=== PATIENT | male | born 1940 | race Caucasian/White ===

== ENCOUNTER 2016-05-05 16:28 | Emergency (ER) | payer OTHER, MEDICARE ==
--- NOTE | 2016-05-05 16:47 | ED GENERAL ADULT ---
History of Present Illness General Chief Complaint: General Adult Stated Complaint: SENT BY GI FOR VIT K SHOT Source: patient, old records Exam Limitations: no limitations Vital Signs & Intake/Output Vital Signs & Intake/Output Vital Signs Date Time Temp Pulse Resp B/P Pulse O2 O2 Flow FiO2 Ox Delivery Rate 05/05 1659 98.2 80 16 145/70 98 Room Air Room Air ED Intake and Output 05/06 0000 05/05 1200 Intake Total 0 Output Total Balance 0 Intake, Oral 0 Allergies Coded Allergies: No Known Allergies (05/05/16) Triage Nurses Notes Reviewed? yes Onset: Gradual Duration: day(s): (1), constant Timing: single episode today Injury Environment: home Severity: mild Severity Numbers: 1 No Modifying Factors: none Associated Symptoms: denies HPI: This is a 75-year-old male who presents to the emergency room for administration of vitamin K referred by Dr. 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 The patient takes Coumadin daily and had an elevated INR today for which she was referred to the ER after no pharmacies had the medication in stock. The patient is otherwise without any complaints he denies pain there is been no active bleeding no change in his bowel movements. No fever no chills, no modifying or associated symptoms otherwise. Per nursing conversation with Dr. Lewis's office patient is to receive 1 dose of vitamin K 10 mg subcutaneous. pts outpt inr was 2.18 today. (ANIBAL VIERA) Past History Medical History Any Pertinent Medical History? see below for history Cardiovascular: hypertension Surgical History Surgical History: non-contributory Psychosocial History Tobacco Use: Never used Family History Hx Contributory? No (ANIBAL VIERA) Review of Systems Review of Systems Constitutional: Reports: see HPI. All Other Systems: Reviewed and Negative Comments Review of systems: See HPI, All other systems negative. Constitutional, no chills no fever, no malaise no weight loss HEENT: no sore throat no congestion Cardiovascular: No chest pain , no palpitation Skin, no jaundice no rashes, no change in skin Respiratory: No dyspnea no cough no sputum GI: No nausea no vomiting, no diarrhea : No dysuria Muscle skeletal: No joint pain, no back pain, no neck pain, Neurologic: No numbness, no headache Psych: No stress Heme/endocrine: No bruising no bleeding Immunology: No lymphadenopathy (ANIBAL VIERA) Physical Exam Physical Exam General Appearance: well developed/nourished, no apparent distress, alert, awake Comments: Well-developed well-nourished patient in no apparent distress. HEENT: Atraumatic, extraocular motion intact Neck: Supple, FROM Back: FROM Cardiovascular: Regular rate and rhythms no murmurs rubs Respiratory: No respiratory distress. Patient speaking in full complete sentences. Breath sounds clear to auscultation bilaterally: NO W/R/R Extremities: full range of motion Neuro: Alert and oriented x3 Skin: Warm & dry;No appreciable rash on exposed skin Psych: Mood affect normal, normal memory normal judgment. Core Measures ACS in differential dx? No CVA/TIA Diagnosis: No Severe Sepsis Present: No Septic Shock Present: No (ANIBAL VIERA) Progress Differential Diagnoses I considered the following diagnoses in my evaluation of the patient: Elevated INR electrolyte abnormality Plan of Care: Current Medications Sig/Barb Start time Last Medication Dose Stop Time Status Admin Phytonadione 10 MG ONCE ONE 05/05 1644 UNVr (Vitamin K) 05/05 1645 Patient administered vitamin K 10 mg subcutaneous he is otherwise without any complaints patient will follow-up with Dr. Lewis for colonoscopy tomorrow, I answered all his questions she feels comfortable with plan cleared for discharge (ANIBAL VIERA) Initial ED EKG: none (ANIBAL VIERA) Departure Departure Time of Disposition: 1649 Disposition: HOME OR SELF CARE Condition: Stable Clinical Impression Primary Impression: Elevated INR Referrals: BRENDA ESPINO,CUAUHTEMOC Diego (PCP/Family) ANNA MARQUEZ,ENRIKE Greene Additional Instructions: follow up as scheduled tomorrow for your colonoscopy and refer to dr nation as to when to begin your coumadin once again. 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 I have also reviewed all the pertinent lab results and diagnostic results. I agree with the findings and the plan of care as documented in the PA's/[employer] SAL[employer] TEAM MEMBER's documentation. [X] I have reviewed the ED Record and agree with the PA's/[employer] SALES [employer] TEAM MEMBER's documentation. [] Additions or exceptions (if any) to the PAs/[employer] SALES [employer] TEAM MEMBER's note and plan are summarized below: [] (JOSE ALEJANDRO MARQUEZ,MAYANK) Critical Care Note Critical Care Note Critical Care Time: non-applicable (LENNIE DOLAN,ANIBAL)
[2016-05-05 16:59] VITALS: BP 145/70
== END 2016-05-05 17:00 ==
LOC: ERH 16:28
DX: R79.1 Abnormal coagulation profile (principal)
CPT/HCPCS: 36415; 96372

== ENCOUNTER 2017-07-13 17:13 | Inpatient (IN) | payer OTHER, MEDICARE ==
[~2017-07-13] VITALS: Ht 185.4 cm; Wt 99.5 kg
--- NOTE | 2017-07-13 17:45 | ED DYSPNEA/ASTHMA COMPLAINT ---
History of Present Illness General Chief Complaint: Dyspnea (COPD, CHF, Other) Stated Complaint: SOB, X 2 DAY, S/P STENT/PACEMAKER PLACEMENT Source: patient Exam Limitations: no limitations Vital Signs & Intake/Output Vital Signs & Intake/Output Vital Signs Date Time Temp Pulse Resp B/P B/P Pulse O2 O2 Flow FiO2 Mean Ox Delivery Rate 07/13 2054 97.5 92 20 136/88 97 Nasal 2.0L Cannula 07/13 1934 97.8 100 20 134/100 97 Nasal 2.0L Cannula 07/13 1920 96 Nasal 2.0L Cannula 07/13 1730 124 20 146/99 92 Room Air 07/13 1724 97.1 101 20 141/94 95 Room Air Room Air Allergies Coded Allergies: No Known Allergies (07/13/17) Triage Note: PT TO ED FOR C/C OF SUDDEN ONSET OF SOB THAT STARTED LAST NIGHT. PT WAS UNABLE TO SLEEP AND HAD TO SLEEP IN A CHAIR IN ORDER TO BREATHE. SIGNIFICANT CARDIAC HISTORY OF CARDIAC ARREST June WITH STENTS PLACED AND AFIB. PT DENIES CHEST PAIN, DIZZINESS. BROUGHT TO ROOM 20 FROM EKG [place]. Triage Nurses Notes Reviewed? yes Onset: Abrupt Duration: day(s): (2), constant, continues in ED, getting worse Timing: single episode today Severity: moderate, severe Activities at Onset: none Prior Episodes/Possible Cause: no prior episodes Modifying Factors: Worsens With: movement. Associated Symptoms: anxiety, cough HPI: 76-year-old male past medical history of coronary disease, atrial fibrillation, hypertension presents for evaluation of shortness of breath. Patient states that on 06/22/2017 he had a [facility] that resulted in cardiac arrest. He was able to be revived and went to [facility] HE HAD had stents placed and was given a pacemaker. He had been doing well since discharge until about 2 days ago he developed worsening shortness of breath. He states that the shortness breath is worse when he lays back or when he exerts himself. It does get somewhat better at rest. It is no chest pain. It is associated with a dry cough and no hemoptysis fever lower extremity edema. No nausea vomiting sweats or chills. (Terrance DOLAN,Ankush) Reconcile Medications Atorvastatin Calcium 40 MG TABLET 1 TAB PO QPM Cholesterol (Reported) Lisinopril 5 MG TABLET 1 TAB PO DAILY BP (Reported) Warfarin Sodium (Coumadin) 5 MG TABLET 1 TAB PO QPM Atrial Fibrillation ( Reported) (Ashok MARQUEZ,Favio) Past History Travel History Traveled to [place] past 21 day No Medical History Any Pertinent Medical History? 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 No (Ankush Kaye) Review of Systems Review of Systems Constitutional: Reports: weakness. EENTM: Reports: no symptoms. Respiratory: Reports: see HPI, cough, short of breath. Cardiovascular: Reports: no symptoms. GI: Reports: no symptoms. Genitourinary: Reports: no symptoms. Musculoskeletal: Reports: no symptoms. Skin: Reports: no symptoms. Neurological/Psychological: Reports: no symptoms. Hematologic/Endocrine: Reports: no symptoms. Immunologic/Allergic: Reports: no symptoms. All Other Systems: Reviewed and Negative (Ankush Kaye) Physical Exam Physical Exam General Appearance: well developed/nourished, no apparent distress, alert, awake Head: atraumatic, normal appearance Eyes: Bilateral: normal appearance, PERRL, EOMI. Ears, Nose, Throat: normal pharynx, normal ENT inspection, hearing grossly normal Neck: normal inspection, supple, full range of motion Respiratory: chest non-tender, crackles (AT BASES ) Cardiovascular: regular rate/rhythm, normal peripheral pulses Peripheral Pulses: 2+ radial (R), 2+ radial (L) Gastrointestinal: normal bowel sounds, soft, non-tender, no organomegaly Neurologic/Psych: no motor/sensory deficits, awake, alert, oriented x 3, normal gait, normal mood/affect Skin: intact, normal color, warm/dry Lymphatic: no anterior cervical benjamin Core Measures ACS in differential dx? No CVA/TIA Diagnosis No Sepsis Present: No Sepsis Focused Exam Completed? No (Ankush Kaye) Progress Differential Diagnosis: asthma, AMI, bronchitis, CHF, COPD, musculoskeletal pain , pericarditis, pulmonary embolism, pneumonia, pneumothorax, rib fracture, unstable angina Plan of Care: Orders Procedure Date/time Status CHF Diet 07/14 B Active ECHOCARDIOGRAM 07/14 0700 Active TROPONIN LEVEL 07/14 0600 Active PROTHROMBIN TIME 07/14 06 Active BASIC ELECTROLYTES PLUS BUN&CR 07/14 06 Active EKG 07/14 0600 Active TROPONIN LEVEL 07/13 2300 Active EKG 07/13 2300 Active Weight 07/13 2208 Active Vital Signs 07/13 2208 Active Teach/Educate 07/13 2208 Active Pain Treatment and Response 07/13 2208 Active Nutritional Intake, Monitor 07/13 2208 Active Isolation 07/13 2208 Active Intake & Output 07/13 2208 Active Patient Care Conference 07/13 2208 Active Activity/Ambulation 07/13 2208 Active Pathway - chart 07/13 2154 Active House Staff 07/13 2154 Active Patient Data 07/13 2154 Active Patient Data 07/13 2044 Active OXYGEN SETUP (GEN) 07/14 2031 Active Saline Lock 07/14 2031 Active Admit to inpatient 07/14 2031 Active Vital Signs 07/14 2031 Active Activity/Ambulation 07/14 2031 Active Code Status 07/14 2031 Active Intake & Output 07/13 1908 Active Add-on Test (ER Only) 07/13 1740 Active PARTIAL THROMBOPLASTIN TIME 07/13 1736 Complete PROTHROMBIN TIME 07/13 1736 Complete Add-on Test (ER Only) 07/13 1728 Active D-DIMER 07/13 1728 Complete TSH REFLEX 07/13 1723 Complete TROPONIN LEVEL 07/13 1723 Complete MAGNESIUM 07/13 1723 Complete COMPREHENSIVE METABOLIC PANEL 07/13 1723 Complete CBC WITHOUT DIFFERENTIAL 07/13 1723 Complete B-TYPE NATRIURETIC PEP (BNP) 07/13 1723 Complete EKG 07/13 1715 Active VTE Mechanical Prophylaxis 07/13 UNK Active Telemetry/Bakery Deliverer 07/13 UNK Active Current Medications Sig/Barb Start time Last Medication Dose Stop Time Status Admin Furosemide 40 MG DAILY 07/14 0900 AC (Lasix) Laboratory Tests 07/13/17 1736: Anion Gap 14, Estimated GFR > 60, BUN/Creatinine Ratio 23.8, Glucose 137 H, Calcium 9.3, Magnesium 1.7, Total Bilirubin 1.0, AST 22, ALT 20 L, Alkaline Phosphatase 83, Troponin I 0.04, Pml-M-Hmmkigrlqtd Pept 6700 H, Total Protein 6.7, Albumin 4.0, Globulin 2.7, Albumin/Globulin Ratio 1.5, TSH &T3 &Free T4 Intrp 4.060, PT 39.6 H, INR 3.59 H, APTT 48 H, D-Dimer High Sensitivty 706 H , CBC w Diff NO MAN DIFF REQ, RBC 4.50 L, MCV 93.3, MCH 31.7 H, MCHC 34.0, RDW 14.4, MPV 7.0 L, Gran % 82.2 H, Lymphocytes % 9.9 L, Monocytes % 6.4, Eosinophils % 1.3, Basophils % 0.2, Absolute Granulocytes 11.6 H, Absolute Lymphocytes 1.4, Absolute Monocytes 0.9 H, Absolute Eosinophils 0.2, Absolute Basophils 0 Patient seen and evaluated. He was recently treated with stents for A VA. Shortness of breath several days and has been worsening. Symptoms are worse when he lays back and exerts himself that improved with REST. He currently is hypoxic on room air to 90%. He is tachypneic and tachycardic. Labs EKG ordered and is on telemetry he is also placed on oxygen to maintain oxygen saturation in the mid 90s. EKG shows a ventricular paced rhythm. On telemetry it appears that he is going from a ventricular paced rhythm to a sinus rhythm intermittently. He denies palpitations or chest pain. BNP is elevated at 6700 chest x-ray shows vascular congestion may be fluid overloaded Lasix ordered. Initial troponin is negative d-dimer is elevated CT was ordered. Spoke with Dr. Ya who recommends admission for IV diuresis. CT scan is negative. No signs of pneumonia PE. Has a small bilateral pleural effusions. Patient will require admission to the hospital for further evaluation and treatment of congestive heart failure. He will require serial labs and EKGs IV diuresis telemetry echocardiogram cardiology consult. Case discussed with Dr. RADFORD and he agrees. Diagnostic Imaging: Viewed by Me: Radiology Read, CT Scan. Discussed w/RAD: Radiology Read, CT Scan. Radiology Impression: PATIENT: CAROL AGUIRRE PRESENT AGE: 76 PATIENT ACCOUNT NO: [id number] : 40 LOCATION: [facility] ORDERING PHYSICIAN: Ankush DOLAN SERVICE DATE: 07/13/17 EXAM TYPE: CAT - CTA CHEST-PULMONARY EMBOLISM EXAMINATION: CT PULMONARY EMBOLISM STUDY CLINICAL INFORMATION: Shortness of breath. Hypoxia. Tachypnea. COMPARISON: Same day chest radiograph. TECHNIQUE: Contiguous helical images of the chest were obtained following the administration of IV contrast. Multiplanar reconstructions were performed. MIPS were obtained and reviewed. DLP: 621 mGy-cm. CONTRAST: Contrast FINDINGS: The heart is stable in size. There is no pericardial effusion. The great vessels are unremarkable. Specifically, there is no pulmonary arterial filling defect. There is no CT evidence for pulmonary embolism. There are no chest wall masses. Review of lung windows demonstrates that there are no pneumothoraces. There are small bilateral pleural effusions. There is mild multifocal atelectasis. There are no pulmonary parenchymal nodules. Limited evaluation of the upper abdomen demonstrates that the liver is of normal size and attenuation without focal lesions. Normal adrenal glands are identified. IMPRESSION: No CT evidence for pulmonary embolism. Small bilateral pleural effusions. Mild multifocal atelectasis. DICTATED BY: Bobby Alamo MD DATE/TIME DICTATED:07/13/171907 STRATEGIC ACCOUNT EXECUTIVE:AIDE DATE/TIME TRANSCRIBED:1907 CONFIDENTIAL, DO NOT COPY WITHOUT APPROPRIATE AUTHORIZATION. CXR Impression: PATIENT: CAROL AGUIRRE PRESENT AGE : 76 PATIENT ACCOUNT NO: [id number] : 40 LOCATION: [facility] ORDERING PHYSICIAN: Ankush DOLAN SERVICE DATE: 07/13/17 EXAM TYPE: RAD - XRY- PORTABLE CHEST XRAY EXAMINATION: CHEST 1 VIEW CLINICAL INFORMATION: Shortness of breath. CHF. COMPARISON: None. TECHNIQUE: An AP view of the chest is provided. FINDINGS: The cardiac silhouette is enlarged. There is moderate vascular congestion. There is retrocardiac opacification. The mediastinal and hilar contours are unremarkable. There are no demonstrable pleural effusions or pneumothoraces. The osseous structures are unremarkable. IMPRESSION: Cardiomegaly with moderate vascular congestion and retrocardiac airspace disease. DICTATED BY: Bobby Alamo MD DATE/TIME DICTATED:07/13/171804 STRATEGIC ACCOUNT EXECUTIVE:AIDE DATE/TIME TRANSCRIBED:07/13/171804 CONFIDENTIAL, DO NOT COPY WITHOUT APPROPRIATE AUTHORIZATION. <Electronically signed in Other Vendor System> SIGNED BY: Bobby Alamo MD 07/13/171809 Initial ED EKG: a. FIB/FLUTTER VENTRICULAR PACED COMPLEXES INTERVENTRICULAR CONDUCTION DELAY Prior EKG: changed (PACE MAKER ) (Ankush Kaye) Departure Departure Disposition: STILL A PATIENT Condition: Stable Clinical Impression Primary Impression: CHF (congestive heart failure) Qualifiers: Heart failure type: unspecified Heart failure chronicity: acute Qualified Code: I50.9 - Heart failure, unspecified Referrals: Temi MARQUEZ,Ken Hurt (PCP/Family) Departure Forms: Customer Survey General Discharge Information Admission Note Spoke With: Ryan Bhat MD Documentation of Exam: Documentation of any treatments & extenuating circumstances including Concerns Regarding Discharge (functional status, medication knowledge or non-compliance, living conditions, etc.) that warrant an admission rather than observation: [, Cardiology, serial EKGs, serial labs, echocardiogram, telemetry, monitoring vital signs, IV diuresis, medication adjustment, oxygen supplementation] (Ankush Kaye) PA/WATER PLANT PUMP OPERATOR Co-Sign Statement Statement: ED Attending supervision documentation- x I saw and evaluated the patient. I have also reviewed all the pertinent lab results and diagnostic results. I agree with the findings and the plan of care as documented in the PA's/WATER PLANT PUMP OPERATOR's documentation. Hx afib, HTN with dyspnea: CHF [] I have reviewed the ED Record and agree with the PA's/WATER PLANT PUMP OPERATOR's documentation. [] Additions or exceptions (if any) to the PAs/WATER PLANT PUMP OPERATOR's note and plan are summarized below: [] (Ashok MARQUEZ,Favio) Critical Care Note Critical Care Note Critical Care Time: non-applicable (Ankush Kaye)
[2017-07-13 18:05] LABS: ABSOLUTE BASOPHIL COUNT 0 /CUMM (0.0-0.2); ABSOLUTE EOSINOPHIL COUNT 0.2 /CUMM (0.0-0.7); ABSOLUTE GRANULOCYTE CT 11.6 /CUMM (1.4-6.5); ABSOLUTE LYMPH COUNT 1.4 /CUMM (1.2-3.4); ABSOLUTE MONOCYTE COUNT 0.9 /CUMM (0.10-0.60); BASOPHIL % 0.2 % (0.0-2.0); EOSINOPHIL % 1.3 % (0-5); MEAN CORPUSCULAR HGB 31.7 PG (27.0-31.0); MEAN CORPUSCULAR VOLUME 93.3 FL (80.0-94.0); PLATELET COUNT 319 /CUMM (130-400); PT 39.6 SEC (9.4-12.5); PTT 48 SEC (25-37); RBC DISTRIBUTION WIDTH 14.4 % (11.5-14.5); WHITE BLOOD CELL COUNT 14.1 /CUMM (4.8-10.8)
--- NOTE | 2017-07-13 18:10 | RADIOLOGY REPORT ---
EXAMINATION: CHEST 1 VIEW CLINICAL INFORMATION: Shortness of breath. CHF. COMPARISON: None. TECHNIQUE: An AP view of the chest is provided. FINDINGS: The cardiac silhouette is enlarged. There is moderate vascular congestion. There is retrocardiac opacification. The mediastinal and hilar contours are unremarkable. There are no demonstrable pleural effusions or pneumothoraces. The osseous structures are unremarkable. IMPRESSION: Cardiomegaly with moderate vascular congestion and retrocardiac airspace disease.
[2017-07-13 18:17] LABS: GRANULOCYTE % 82.2 % (42.2-75.2)
--- NOTE | 2017-07-13 19:16 | CT SCAN REPORT ---
EXAMINATION: CT PULMONARY EMBOLISM STUDY CLINICAL INFORMATION: Shortness of breath. Hypoxia. Tachypnea. COMPARISON: Same day chest radiograph. TECHNIQUE: Contiguous helical images of the chest were obtained following the administration of IV contrast. Multiplanar reconstructions were performed. MIPS were obtained and reviewed. DLP: 621 mGy-cm. CONTRAST: Contrast FINDINGS: The heart is stable in size. There is no pericardial effusion. The great vessels are unremarkable. Specifically, there is no pulmonary arterial filling defect. There is no CT evidence for pulmonary embolism. There are no chest wall masses. Review of lung windows demonstrates that there are no pneumothoraces. There are small bilateral pleural effusions. There is mild multifocal atelectasis. There are no pulmonary parenchymal nodules. Limited evaluation of the upper abdomen demonstrates that the liver is of normal size and attenuation without focal lesions. Normal adrenal glands are identified. IMPRESSION: No CT evidence for pulmonary embolism. Small bilateral pleural effusions. Mild multifocal atelectasis.
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
[2017-07-13] MEDS ORDERED: COUMADIN5 M2 PO (22:20)
[2017-07-13] MEDS ORDERED: ATORVASTATIN CA40 M1 PO (22:20)
[2017-07-13] MEDS ORDERED: LISINOPRIL5 M1 PO (22:21)
[2017-07-13] MEDS ORDERED: TOPROL XL25 M2 PO (22:21)
[2017-07-13] MEDS ORDERED: SPIRONOLACTONE25 M1 PO (22:22)
[2017-07-13] MEDS ORDERED: BRILINTA90 M1 PO (22:23)
[2017-07-13] MEDS ORDERED: FUROSEMIDE20 M1 PO (22:23)
[2017-07-13] MEDS ORDERED: MAGNESIUM400 M1 PO (22:23)
[2017-07-13] MEDS ORDERED: FIBER TABS625 MG PO (22:24)
[2017-07-13 22:48] VITALS: BP 130/76
--- NOTE | 2017-07-13 23:19 | Admission Certification ---
Admission Certification Certification Statement - As attending physician, I certify that at the time of - admission, based on clinical presentation, severity of - symptoms, need for further diagnostic testing and - therapeutic interventions, and risk of adverse outcomes - without in-hospital treatment, in my clinical assessment, - this patient requires an acute hospital stay for a minimum - of two nights or longer. I have also considered psychsocial - factors such as support system, advanced age, financial - issues, cognitive issues, and failed out-patient treatments, - past re-admission history, safety of patient, and lack of - compliance as applicable. Specific rationale supporting this admission is: Hypoxia, acute congestive heart failure.
[2017-07-14 06:59] VITALS: BP 116/68
--- NOTE | 2017-07-14 07:44 | PN- Housestaff ---
Tiago MARQUEZ,[facility] 07/14/17 0743: Subjective Follow-up For: 1. Acute decompensated heart failure 2. Supratherapeutic INR Tele-Events Since Last Visit: Sinus Pacing HR 80-103 Had a 4 beat and 6 beat run of V tach overnight Subjective: Patient says his shortness of breath is getting better and feels like furosemide is working. Denies any chest pain, palpitations, sputum production, or fevers/ chills. Review of Systems Constitutional: Reports: no symptoms. EENTM: Reports: no symptoms. Cardiovascular: Reports: no symptoms. Respiratory: Reports: cough, short of breath. Gastrointestinal: Reports: no symptoms. Genitourinary: Reports: no symptoms. Musculoskeletal: Reports: no symptoms. Skin: Reports: no symptoms. Neurological/Psychological: Reports: no symptoms. Hematologic/Endocrine: Reports: no symptoms. Immunologic/Allergic: Reports: no symptoms. Objective Last 24 Hrs of Vital Signs/I&O Vital Signs Date Time Temp Pulse Resp B/P B/P Pulse O2 O2 Flow FiO2 Mean Ox Delivery Rate 07/14 0823 07/14 0822 07/14 0730 18 98 Room Air 07/14 0659 97.9 84 18 116/68 96 07/13 2248 97.8 106 18 130/76 97 Nasal 2.0L Cannula 07/13 2200 95 Nasal 2.0L Cannula 07/13 2055 97.5 92 20 136/88 97 Nasal 2.0L Cannula 07/13 1935 97.8 100 20 134/100 97 Nasal 2.0L Cannula 07/13 1921 96 Nasal 2.0L Cannula 07/13 1730 124 20 146/99 92 Room Air 07/13 1725 97.1 101 20 141/94 95 Room Air Room Air Intake & Output 07/14 1600 07/14 0800 07/14 0000 Intake Total 400 Output Total 400 700 Balance 0 -700 Intake, Oral 400 Output, Urine 400 700 Patient 235 lb Weight Weight Reported by Patient Measurement Method Physical Exam General Appearance: Alert, Oriented X3, Cooperative, No Acute Distress Skin: No Rashes, No Breakdown Neck: Supple, No JVD Cardiovascular: Normal S1, Normal S2 Lungs: Clear to Auscultation, Normal Air Movement Abdomen: Normal Bowel Sounds, Soft, No Tenderness Extremities: No Clubbing, No Cyanosis, Chronic venous stasis changes Current Medications: Current Medications Sig/Barb Start time Last Medication Dose Route Stop Time Status Admin Atorvastatin Calcium 40 MG QPM 07/14 2100 AC PO Furosemide 40 MG DAILY 07/14 899 CAN PO Furosemide 40 MG DAILY 07/14 899 AC 07/14 IV 0823 Furosemide 0 .STK-MED ONE 07/13 1840 DC IV Furosemide 40 MG ONCE ONE 07/13 1830 DC 07/13 IV 07/13 183 183 Lisinopril 5 MG DAILY 07/14 899 AC 07/14 PO 0823 Magnesium Oxide 400 MG DAILY 07/14 09 AC 07/14 PO 0823 Metoprolol Succinate 25 MG DAILY 07/14 899 AC 07/14 PO 0822 Polycarbophil 625 MG BID 07/13 230 AC 07/14 PO 08 Spironolactone 6.25 MG DAILY 07/14 899 AC 07/14 PO 0822 Ticagrelor 90 MG BID 07/13 2226 AC 07/14 PO 0822 Last 24 Hrs of Lab/Vargas Results Last 24 Hrs of Labs/Mics: Laboratory Tests 07/14/17 0635: Anion Gap 12, Estimated GFR > 60, BUN/Creatinine Ratio 20.0, Troponin I 0.04, PT 30.7 H, INR 2.79 H 07/13/17 2301: Troponin I 0.05 07/13/17 1736: Anion Gap 14, Estimated GFR > 60, BUN/Creatinine Ratio 23.8, Glucose 137 H, Calcium 9.3, Magnesium 1.7, Total Bilirubin 1.0, AST 22, ALT 20 L, Alkaline Phosphatase 83, Troponin I 0.04, [id number]-G-Yffmsjngyfv Pept 6700 H, Total Protein 6.7, Albumin 4.0, Globulin 2.7, Albumin/Globulin Ratio 1.5, TSH &T3 &Free T4 Intrp 4.060, PT 39.6 H, INR 3.59 H, APTT 48 H, D-Dimer High Sensitivty 706 H , CBC w Diff NO MAN DIFF REQ, RBC 4.50 L, MCV 93.3, MCH 31.7 H, MCHC 34.0, RDW 14.4, MPV 7.0 L, Gran % 82.2 H, Lymphocytes % 9.9 L, Monocytes % 6.4, Eosinophils % 1.3, Basophils % 0.2, Absolute Granulocytes 11.6 H, Absolute Lymphocytes 1.4, Absolute Monocytes 0.9 H, Absolute Eosinophils 0.2, Absolute Basophils 0 Assessment/Plan Assessment: Mr. Joseph is a 76-year-old male with past medical history of atrial fibrillation on warfarin, hypertension, recent cardiac arrest in June 2017 with subsequent myocardial infarction status post stent and pacemaker placement at [facility] followed by Dr. Shepard, and psoriasis followed by Dr. Hung who presents with shortness of breath. He will be admitted to telemetry and treated for the following problems: 1. Acute decompensated heart failure 2. Supratherapeutic INR #Acute decompensated heart failure: Patient presents with signs and symptoms of heart failure status post recent myocardial infarction. Chest CTA negative. He received 40 mg IV furosemide in the emergency room and felt better afterwards. -Cardiology consult; appreciate recommendations. -EKG and troponins 3 negative -Continue telemetry monitoring -Daily weights, strict I's and O's; negative FB of 900 since admission -Continue IV lasix 40 mg daily -TTE - pending -Obtain records from [facility] #Supratherapeutic INR: Patient is on warfarin for atrial fibrillation. INR at the time of admission was 3.59. No signs of active bleeding. - Daily INR, 2.79 today. - Continue to hold warfarin. - Repeat INR in am. #Chronic medical problems: -Continue other medications DVT prophylaxis with warfarin CHF diet Full code Problem List: 1. CHF (congestive heart failure) 2. Elevated INR Pain Ratin Pain Location: NA Pain Goal: Remain pain free Pain Plan: PAin [facility] Labs & Rationales: BEP(on LAsix), INR(supratherapeutic) Godfrey Sahni MD 07/14/17 1206: Attending MD Review Statement Attending Statement Attending MD Statement: examined this patient, discuss w/resident/PA/BROADCAST OPERATIONS ENGINEER, agreed w/resident/PA/BROADCAST OPERATIONS ENGINEER, reviewed EMR data (avail) Attending Assessment/Plan: 76M HTN, Afib on coumadin, benign parotid adenoma, psoriasis, recent cardiac arrest (June 2017) s/p RCA stent and PPM admitted for shortness of breath with exertion and at rest, found to have acute CHF, and improved with Lasix. Patient feels much better today. He is now on room air and saturating at 98%. He is still not at his baseline. 1. Acute on chronic CHF, unclear whether systolic or diastolic 2. Hypoxia Plan - Continue on telemetry - Continue Lasix - I/O, daily weights - Obtain records from [facility] - Cardiology consult - Continue home medications - DVT PPx
[2017-07-14 08:31] LABS: PT 30.7 SEC (9.4-12.5)
--- NOTE | 2017-07-14 11:36 | Cons- Cardiology ---
General Information and HPI Consulting Request Date of Consult: 07/14/17 Requested By: Godfrey Sahni MD Reason for Consult: Heart failure History of Present Illness: The patient is a 76-year-old male with history of atrial fibrillation and hypertension who is followed in the office by Dr. Shepard. 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 He was brought to [facility], where cardiac catheterization was performed. The catheterization revealed 70% stenosis of his right coronary artery. He received a stent to the RCA and a defibrillator. After discharge he has been very active. He walked his property line through the [place] after the [place], which was strenuous. Last night he developed shortness of breath, orthopnea, and palpitations. He was brought to the emergency department where he was found to have evidence of congestive heart failure. He reports a nonproductive cough for the past few days. No chest pain. No nausea or vomiting. No lightheadedness or dizziness. No diaphoresis. He notes that he reports that after his stent placement, he was advised to take Brilinta and warfarin, but not aspirin. Allergies/Medications Allergies: Coded Allergies: No Known Allergies (07/13/17) Home Med List: Atorvastatin Calcium 40 MG TABLET 1 TAB PO QPM Cholesterol (Reported) Calcium Polycarbophil (Fiber Tabs) 625 MG TABLET 1 TAB PO BID Fiber (Reported ) Furosemide 20 MG TABLET 1 TAB PO MON/THUR/SAT Diuretic (Reported) Lisinopril 5 MG TABLET 1 TAB PO DAILY BP (Reported) Magnesium Oxide (Magnesium) 400 MG CAPSULE 1 CAP PO DAILY Mg (Reported) Metoprolol Succ XL (Toprol XL) 25 MG TAB.ER.24H 1 TAB PO DAILY BP (Reported) Spironolactone 25 MG TABLET 0.25 TAB PO DAILY Diuretic (Reported) Ticagrelor (Brilinta) 90 MG TABLET 1 TAB PO BID Stents (Reported) Warfarin Sodium (Coumadin) 5 MG TABLET 1 TAB PO QPM Atrial Fibrillation ( Reported) Current Medications: Current Medications Sig/Barb Start time Last Medication Dose Route Stop Time Status Admin Atorvastatin Calcium 40 MG QPM 07/14 2100 AC PO Furosemide 40 MG DAILY 07/14 0900 CAN PO Furosemide 40 MG DAILY 07/14 0900 AC 07/14 IV 0823 Furosemide 0 .STK-MED ONE 07/13 1840 DC IV Furosemide 40 MG ONCE ONE 07/13 1830 DC 07/13 IV 07/13 1831 1835 Lisinopril 5 MG DAILY 07/14 899 AC 07/14 PO 0823 Magnesium Oxide 400 MG DAILY 07/14 899 AC 07/14 PO 0823 Metoprolol Succinate 25 MG DAILY 07/14 09 AC 07/14 PO 0822 Polycarbophil 625 MG BID 07/13 2300 AC 07/14 PO 0823 Spironolactone 6.25 MG DAILY 07/14 899 AC 07/14 PO 0822 Ticagrelor 90 MG BID 07/13 2226 AC 07/14 PO 0822 Review of Systems Review of Systems: No fever. No chills. No rash. No tremor. All other systems were reviewed, and were noted to be negative. Past History Travel History Traveled to [place] past 21 day No Medical History Cardiovascular: AFIB, hypertension, myocardial infarction, CARDIAC STENT CARDIAC ARREST 06/22/17 [employer] Surgical History Surgical History: non-contributory Family History Relations & Conditions If Any: BROTHER Coronary artery disease Psychosocial History Where Do You Live? Home Services at Home: None Smoking Status: Unknown If Ever Smoked ETOH Use: denies use Illicit Drug Use: denies illicit drug use Exam & Diagnostic Data Vital Signs and I&O Vital Signs Date Time Temp Pulse Resp B/P B/P Pulse O2 O2 Flow FiO2 Mean Ox Delivery Rate 07/14 822 116/68 07/14 0822 116/68 07/14 0730 18 98 Room Air 07/14 0659 97.9 84 18 / 96 07/13 2248 97.8 106 18 130/76 97 Nasal 2.0L Cannula 07/13 2199 95 Nasal 2.0L Cannula 07/13 2054 97.5 92 20 136/88 97 Nasal 2.0L Cannula 07/13 193 97.8 100 20 134/100 97 Nasal 2.0L Cannula 07/13 192 96 Nasal 2.0L Cannula 07/13 1730 124 20 146/99 92 Room Air 07/13 172 97.1 101 20 141/94 95 Room Air Room Air Intake & Output 07/14 1600 07/14 0800 07/14 0000 07/13 1600 07/13 0807/13 0000 Intake Total 400 Output Total 400 700 Balance 0 -700 Intake, Oral 400 Output, Urine 400 700 Patient 235 lb Weight Weight Reported by Patient Measurement Method Physical Exam: Gen: The patient is in no acute distress HEENT: Normal nose, ears, and oropharynx. Pupils equal bilaterally. Conjunctiva normal. Neck: Supple with no JVD, no masses, and no thyromegaly Lungs: Clear to auscultation with normal respiratory effort Heart: RRR, S1, S2, no murmurs. No peripheral edema, 2+ pulses in the lower extremities bilaterally Abdomen: Soft, nontender, no masses. No hepatomegaly. No splenomegaly Extremities: No clubbing or cyanosis. Normal muscle strength in the upper and lower extremities Skin: Normal skin turgor with no skin ulcers or lesions noted. Neuro: Cranial nerves intact. Sensation intact Psych: Alert and oriented x 3 with appropriate affect Labs/Vargas Results: Laboratory Tests 07/14 07/13 07/13 0635 2301 1736 Chemistry Sodium (137 - 145 mmol/L) 143 139 Potassium (3.5 - 5.1 mmol/L) 3.6 4.2 Chloride (98 - 107 mmol/L) 105 102 Carbon Dioxide (22 - 30 mmol/L) 26 23 Anion Gap (5 - 16) 12 14 BUN (9 - 20 mg/dL) 18 19 Creatinine (0.7 - 1.2 mg/dL) 0.9 0.8 Estimated GFR (>60 ml/min) > 60 > 60 BUN/Creatinine Ratio (7 - 25 %) 20.0 23.8 Glucose (65 - 99 mg/dL) 137 H Calcium (8.4 - 10.2 mg/dL) 9.3 Magnesium (1.6 - 2.3 mg/dL) 1.7 Total Bilirubin (0.2 - 1.3 mg/dL) 1.0 AST (17 - 59 U/L) 22 ALT (21 - 72 U/L) 20 L Alkaline Phosphatase (< 127 U/L) 83 Troponin I (<0.11 ng/ml) 0.04 0.05 0.04 Qmf-H-Jbolkbgrime Pept (<125 pg/mL) 6700 H Total Protein (6.3 - 8.2 g/dL) 6.7 Albumin (3.5 - 5.0 g/dL) 4.0 Globulin (1.9 - 4.2 gm/dL) 2.7 Albumin/Globulin Ratio (1.1 - 2.2 %) 1.5 TSH &T3 &Free T4 Intrp (0.27 - 4.20 uIU/mL) 4.060 Coagulation PT (9.4 - 12.5 SEC) 30.7 H 39.6 H INR (0.90 - 1.17) 2.79 H 3.59 H APTT (25 - 37 SEC) 48 H D-Dimer High Sensitivty (0 - 243 ng/ml) 706 H Hematology CBC w Diff NO MAN DIFF REQ WBC (4.8 - 10.8 /CUMM) 14.1 H RBC (4.70 - 6.10 /CUMM) 4.50 L Hgb (14.0 - 18.0 G/DL) 14.3 Hct (42 - 52 %) 42.0 MCV (80.0 - 94.0 FL) 93.3 MCH (27.0 - 31.0 PG) 31.7 H MCHC (33.0 - 37.0 G/DL) 34.0 RDW (11.5 - 14.5 %) 14.4 Plt Count (130 - 400 /CUMM) 319 MPV (7.4 - 10.4 FL) 7.0 L Gran % (42.2 - 75.2 %) 82.2 H Lymphocytes % (20.5 - 51.1 %) 9.9 L Monocytes % (1.7 - 9.3 %) 6.4 Eosinophils % (0 - 5 %) 1.3 Basophils % (0.0 - 2.0 %) 0.2 Absolute Granulocytes (1.4 - 6.5 /CUMM) 11.6 H Absolute Lymphocytes (1.2 - 3.4 /CUMM) 1.4 Absolute Monocytes (0.10 - 0.60 /CUMM) 0.9 H Absolute Eosinophils (0.0 - 0.7 /CUMM) 0.2 Absolute Basophils (0.0 - 0.2 /CUMM) 0 Diagnostic Data EKG Results EKG tracing is independently reviewed, and reveals atrial fibrillation with ventricular pacing at a rate of 99 CXR Results Cardiomegaly with moderate vascular congestion and retrocardiac airspace disease. Other Results CTA chest: No CT evidence for pulmonary embolism. Small bilateral pleural effusions. Mild multifocal atelectasis. Assessment/Plan Assessment/Plan Assessment: 1. Hypertension 2. Chronic atrial fibrillation, anticoagulated on warfarin 3. Recent cardiac arrest 4. Status post stent placement to the RCA 5. Status post defibrillator placement 6. Acute heart failure, ejection fraction is unknown at this time Recommendations: * Lasix 40 mg IV every 12 hours * Dose warfarin for INR 2-3 * Continue Brilinta * Continue other cardiac medications * Monitor input and output with daily weights * Check basic metabolic profile daily * Echocardiogram * Request records from [facility] Consult Acknowledgment - Thank you for your consult request.
[2017-07-14 14:34] VITALS: BP 130/92
--- NOTE | 2017-07-14 15:10 | PN- Student ---
Subjective Subjective: Patient says he feels well and that his breathing has greatly improved. Objective Objective: Vital Signs Date Time Temp Pulse Resp B/P B/P Pulse O2 O2 Flow FiO2 Mean Ox Delivery Rate 07/14 0823 116/68 07/14 0822 11668 07/14 0730 18 98 Room Air 07/14 0659 97.9 84 18 116/68 96 07/13 2248 97.8 106 18 130/76 97 Nasal 2.0L Cannula 07/13 2200 95 Nasal 2.0L Cannula 07/13 2055 97.5 92 20 136/88 97 Nasal 2.0L Cannula 07/13 1935 97.8 100 20 134/100 97 Nasal 2.0L Cannula 07/13 1921 96 Nasal 2.0L Cannula 07/13 1730 124 20 146/99 92 Room Air 07/13 1725 97.1 101 20 141/94 95 Room Air Room Air ED Intake and Output 07/14 0000 07/13 1200 Intake Total Output Total 700 Balance -700 Output, Urine 700 Patient 235 lb Weight Weight Reported by Patient Measurement Method Laboratory Tests 07/14 07/13 07/13 0635 2301 1736 Chemistry Sodium (137 - 145 mmol/L) 143 139 Potassium (3.5 - 5.1 mmol/L) 3.6 4.2 Chloride (98 - 107 mmol/L) 105 102 Carbon Dioxide (22 - 30 mmol/L) 26 23 Anion Gap (5 - 16) 12 14 BUN (9 - 20 mg/dL) 18 19 Creatinine (0.7 - 1.2 mg/dL) 0.9 0.8 Estimated GFR (>60 ml/min) > 60 > 60 BUN/Creatinine Ratio (7 - 25 %) 20.0 23.8 Glucose (65 - 99 mg/dL) 137 H Calcium (8.4 - 10.2 mg/dL) 9.3 Magnesium (1.6 - 2.3 mg/dL) 1.7 Total Bilirubin (0.2 - 1.3 mg/dL) 1.0 AST (17 - 59 U/L) 22 ALT (21 - 72 U/L) 20 L Alkaline Phosphatase (< 127 U/L) 83 Troponin I (<0.11 ng/ml) 0.04 0.05 0.04 Bbh-E-Dtpzxagpyls Pept (<125 pg/mL) 6700 H Total Protein (6.3 - 8.2 g/dL) 6.7 Albumin (3.5 - 5.0 g/dL) 4.0 Globulin (1.9 - 4.2 gm/dL) 2.7 Albumin/Globulin Ratio (1.1 - 2.2 %) 1.5 TSH &T3 &Free T4 Intrp (0.27 - 4.20 uIU/mL) 4.060 Coagulation PT (9.4 - 12.5 SEC) 30.7 H 39.6 H INR (0.90 - 1.17) 2.79 H 3.59 H APTT (25 - 37 SEC) 48 H D-Dimer High Sensitivty (0 - 243 ng/ml) 706 H Hematology CBC w Diff NO MAN DIFF REQ WBC (4.8 - 10.8 /CUMM) 14.1 H RBC (4.70 - 6.10 /CUMM) 4.50 L Hgb (14.0 - 18.0 G/DL) 14.3 Hct (42 - 52 %) 42.0 MCV (80.0 - 94.0 FL) 93.3 MCH (27.0 - 31.0 PG) 31.7 H MCHC (33.0 - 37.0 G/DL) 34.0 RDW (11.5 - 14.5 %) 14.4 Plt Count (130 - 400 /CUMM) 319 MPV (7.4 - 10.4 FL) 7.0 L Gran % (42.2 - 75.2 %) 82.2 H Lymphocytes % (20.5 - 51.1 %) 9.9 L Monocytes % (1.7 - 9.3 %) 6.4 Eosinophils % (0 - 5 %) 1.3 Basophils % (0.0 - 2.0 %) 0.2 Absolute Granulocytes (1.4 - 6.5 /CUMM) 11.6 H Absolute Lymphocytes (1.2 - 3.4 /CUMM) 1.4 Absolute Monocytes (0.10 - 0.60 /CUMM) 0.9 H Absolute Eosinophils (0.0 - 0.7 /CUMM) 0.2 Absolute Basophils (0.0 - 0.2 /CUMM) 0 Patient is alert, oriented x3, cooperative, and in no acute distress. S1 and S2 were heard, with no additional sounds. JVD was not present and hepatojugular reflux was negative. Vesicular breath sounds were heard on lung auscultation. Abdomen was soft, nontender, with no guarding. 1+ pitting edema was noted on lower extremities. Results Results: Laboratory Tests 07/14/17 0635: Anion Gap 12, Estimated GFR > 60, BUN/Creatinine Ratio 20.0, Troponin I 0.04, PT 30.7 H, INR 2.79 H 07/13/17 2301: Troponin I 0.05 07/13/17 1736: Anion Gap 14, Estimated GFR > 60, BUN/Creatinine Ratio 23.8, Glucose 137 H, Calcium 9.3, Magnesium 1.7, Total Bilirubin 1.0, AST 22, ALT 20 L, Alkaline Phosphatase 83, Troponin I 0.04, Xgd-B-Dmqribmvjzm Pept 6700 H, Total Protein 6.7, Albumin 4.0, Globulin 2.7, Albumin/Globulin Ratio 1.5, TSH &T3 &Free T4 Intrp 4.060, PT 39.6 H, INR 3.59 H, APTT 48 H, D-Dimer High Sensitivty 706 H , CBC w Diff NO MAN DIFF REQ, RBC 4.50 L, MCV 93.3, MCH 31.7 H, MCHC 34.0, RDW 14.4, MPV 7.0 L, Gran % 82.2 H, Lymphocytes % 9.9 L, Monocytes % 6.4, Eosinophils % 1.3, Basophils % 0.2, Absolute Granulocytes 11.6 H, Absolute Lymphocytes 1.4, Absolute Monocytes 0.9 H, Absolute Eosinophils 0.2, Absolute Basophils 0 Imaging: - CXR: Cardiomegaly with moderate vascular congestion and retrocardiac airspace disease. - Chest CTA: No CT evidence for pulmonary embolism. Small bilateral pleural effusions. Mild multifocal atelectasis. Assessment/Plan Assessment: Mr. Joseph is a 76 y/o male with a PMH of Afib on coumadin (for 8 yrs), HTN, HLD, cardiac arrest on June 23, cardiac stent placement with subsequent pacemaker placing on June 24 at [facility]. He is on Brilinta, Furosemida, Metropolol and Spironolactone for the before-mentioned reason. He came to the ER because of SOB for 2 days duration. He has been receiving 40mg IV furosemide since arrival and he is feeling much better. In fact, he is currently out of suplemmental oxygen. I called [facility] at 9:00am and requested his medical records in order for them to be revised by cardiology. Problem list and plan: 1. Acute heart failure: Imaging showed vascular congestion and BL pleural effusions, so he was continued on lasix. SOB has decreased, although the patient becomes dyspneic after a couple of minutes of talking. Continue the lasix. Monitor I & O with daily weights and BMP. Echocardiogram is pending. Follow up with cardiology. 2. Recent cardiac arrest with stent placement: Per cardiology's recommendation, continue with brilinta, metropolol & spironolactone. Awaiting records from [facility]. Follow up with cardiology. 3. HTN: Continue the diuretics, metropolol and lisinopril. 4. Chronic afib: Monitor INR. Per cardiology's recommendation, maintain it 2-3. 6. HLD: Continue home meds.
[2017-07-14 23:22] VITALS: BP 112/76
[2017-07-15 06:42] VITALS: BP 122/88
--- NOTE | 2017-07-15 07:26 | PN- Housestaff ---
See Addendum Tiago MARQUEZ,[facility] 07/15/17 0726: Subjective Follow-up For: 1. CAD, status post recent cardiac arrest with stent placement 2. Recent defibrillator placement 3. Acute on chronic systolic heart failure, LVEF 35% Tele-Events Since Last Visit: Sinus pacing 4 beat run of V. tach Heart rate 84-101 Subjective: Patient complains of pain in his left thumb, states he hurt it during a strong couple of days ago. Denies any other symptoms. Review of Systems Constitutional: Reports: no symptoms. EENTM: Reports: no symptoms. Cardiovascular: Reports: no symptoms. Respiratory: Reports: no symptoms. Gastrointestinal: Reports: no symptoms. Genitourinary: Reports: no symptoms. Musculoskeletal: Reports: joint pain. Skin: Reports: no symptoms. Neurological/Psychological: Reports: no symptoms. Hematologic/Endocrine: Reports: no symptoms. Immunologic/Allergic: Reports: no symptoms. Objective Last 24 Hrs of Vital Signs/I&O Vital Signs Date Time Temp Pulse Resp B/P B/P Pulse O2 O2 Flow FiO2 Mean Ox Delivery Rate 07/15 0829 120/74 07/15 0829 120/74 07/15 0642 98.8 88 20 122/88 96 Room Air 07/14 2322 98.3 88 20 112/76 97 Room Air 07/14 1434 98.7 92 18 130/92 96 Nasal Cannula Intake & Output 07/15 1600 07/15 0800 07/15 0000 Intake Total 220 Output Total 563 632 4751 Balance -800 -450 -880 Intake, Oral 220 Output, Urine 461 746 6270 Patient 217 lb Weight Weight Bed scale Measurement Method Physical Exam General Appearance: Alert, Oriented X3, Cooperative, No Acute Distress Skin: No Rashes, No Breakdown Cardiovascular: Regular Rate, Normal S1, Normal S2 Lungs: Clear to Auscultation, Normal Air Movement Abdomen: Normal Bowel Sounds, Soft, No Tenderness Extremities: No Clubbing, No Cyanosis, No Edema Current Medications: Current Medications Sig/Barb Start time Last Medication Dose Route Stop Time Status Admin Acetaminophen 650 MG Q4P PRN 07/14 2130 AC 07/14 PO 2126 Atorvastatin Calcium 40 MG QPM 07/14 2100 AC 07/14 PO 2123 Benzonatate 100 MG TID PRN 07/14 1530 AC PO Furosemide 40 MG 7:30 AM, & 4:30 PM 07/14 1630 AC 07/15 IV 0828 Furosemide 40 MG DAILY 07/14 09 DC 07/14 IV 0823 Lisinopril 5 MG DAILY 07/14 09 AC 07/15 PO 0829 Magnesium Oxide 400 MG DAILY 07/14 09 AC 07/15 PO 0829 Metoprolol Succinate 25 MG DAILY 07/14 09 AC 07/15 PO 0829 Patient Medication 1 ED ONE ONE 07/14 1545 DC Teaching ED 07/14 1546 Phosphate 250 MG PC AND AT BEDTIME 07/15 1300 AC PO 07/16 0901 Polycarbophil 625 MG BID 07/13 2300 AC 07/15 PO 0829 Potassium Chloride 40 MEQ ONCE ONE 07/15 1300 DC PO 07/15 1301 Potassium Chloride 40 MEQ ONCE ONE 07/14 1530 DC 07/14 PO 07/14 1531 1651 Spironolactone 6.25 MG DAILY 07/14 0900 AC 07/15 PO 0828 Ticagrelor 90 MG BID 07/13 2226 AC 07/15 PO 0829 Warfarin Sodium 5 MG COUMADIN 1700 ONE 07/15 1700 AC PO 07/15 1701 Last 24 Hrs of Lab/Vargas Results Last 24 Hrs of Labs/Mics: Laboratory Tests 07/15/17 0655: Anion Gap 8, Estimated GFR > 60, BUN/Creatinine Ratio 22.5, Phosphorus 3.4, Magnesium 1.9, PT 21.4 H, INR 1.95 H Assessment/Plan Assessment: Mr. Joseph is a 76-year-old male with past medical history of atrial fibrillation on warfarin, hypertension, recent cardiac arrest in June 2017 with subsequent myocardial infarction status post stent and pacemaker placement at [facility] followed by Dr. Shepard, and [facility] followed by Dr. Hung who presents with shortness of breath. He will be admitted to telemetry and treated for the following problems: 1. Acute on chronic systolic heart failure, LVEF 35% 2. Supratherapeutic INR #Acute on chronic systolic heart failure, LVEF 35%: Patient presents with signs and symptoms of heart failure status post recent myocardial infarction. Chest CTA negative. He received 40 mg IV furosemide in the emergency room and felt better afterwards. -Cardiology consult; appreciate recommendations. -EKG and troponins 3 negative -Continue telemetry monitoring -Daily weights, strict I's and O's; negative FB of 2200 since admission -Change Lasix to 40 mg by mouth twice a day. -Echocardiogram showed ejection fraction of 35% with global hypokinesis. Records from [facility] shows similar echo findings. - Patient had 5 beat run of V. tach yesterday evening, and a 14 beat run of V. tach overnight. She already has an AICD in place. Will continue to monitor electrolytes and replete accordingly. #Supratherapeutic INR: Patient is on warfarin for atrial fibrillation. INR at the time of admission was 3.59. No signs of active bleeding. - Daily INR, 1.95 today. - Will give warfarin 5 mg once. - Repeat INR in am. #Chronic medical problems: -Continue other medications DVT prophylaxis with warfarin CHF diet Full code Problem List: 1. Elevated INR 2. CHF (congestive heart failure) Pain Ratin Pain Location: Left thumb Pain Goal: Remain pain free Pain Plan: Pain pathway Tomorrow's Labs & Rationales: BEP, mag, phosphorus(admitted for exacerbation of heart failure, on Lasix. patient with a 35 we did run of V. tach yesterday) INR Godfrey Sahni MD 07/15/17 1348: Attending MD Review Statement Attending Statement Attending MD Statement: examined this patient, discuss w/resident/PA/[employer], agreed w/resident/PA/[employer]ER, reviewed EMR data (avail) Attending Assessment/Plan: 76M HTN, Afib on coumadin, benign parotid adenoma, psoriasis, recent cardiac arrest (June 2017) s/p RCA stent and PPM admitted for shortness of breath with exertion and at rest, found to have acute CHF, and improved with Lasix. Patient feels much better today. He is now on room air and saturating at 98%. He has left hand pain and swelling. 1. Acute on chronic CHF, unclear whether systolic or diastolic 2. Hypoxia Plan - Continue on telemetry - Continue Lasix - Hand x-ray - I/O, daily weights - Cardiology consult - Continue home medications - DVT PPx - Anticipated discharge tomorrow on PO Lasix with cardiology follow up
--- NOTE | 2017-07-15 07:47 | ECHOCARDIOGRAM REPORT ---
CAROL AGUIRRE Age: 76 : 1940 Gender: M Exam Date: 07/14/2017 10:19 Exam Location: [address] Ht (in): 73 Wt (lb): 225 BSA: 2.31 BP: 116 / 68 Ordering Physician: Noe Keith MD Referring Physician: Noe Keith MD Technologist: Jonnie Gaspar [facility] Room Number: 180-2 Indications: HEART FAILURE Rhythm: Atrial fibrillation Technical Quality: Fair FINDINGS Left Ventricle Severe left ventricular dilatation. Mild concentric left ventricular hypertrophy. Moderately decreased left ventricular systolic function. Left ventricular ejection fraction is estimated at 35%. Global hypokinesis Right Ventricle Defibrillator wire in the right ventricular cavity. Normal right ventricular size and function. Right Atrium Normal right atrial size. Left Atrium Mild left atrial dilatation. Mitral Valve Mitral valve thickened. Mild mitral regurgitation. Aortic Valve Diffuse thickening (sclerosis) of the aortic valve cusps without reduced excursion. Mild aortic regurgitation. No aortic stenosis. Tricuspid Valve Tricuspid valve not well visualized, grossly normal. Mild tricuspid regurgitation. No evidence of pulmonary hypertension. Pulmonic Valve Pulmonic valve not well visualized, grossly normal. Trace pulmonic regurgitation. Pericardium No pericardial effusion. Great Vessels Normal size aortic root. CONCLUSIONS Severe left ventricular dilatation. Left ventricular ejection fraction is estimated at 35%. Mild concentric left ventricular hypertrophy. Moderately decreased left ventricular systolic function. Global hypokinesis. Defibrillator wire in the right ventricular cavity. Mild mitral regurgitation. Mild aortic regurgitation. Mild tricuspid regurgitation. Trace pulmonic regurgitation. Wiliam Ya M.D. (Electronically Signed) Final Date: 15 Jul 2017 07:47 MEASUREMENTS (Male / Female) Normal Values 2D ECHO LV Diastolic Diameter PLAX 7.5 cm 4.2 - 5.9 / 3.9 - 5.3 cm LV Systolic Diameter PLAX 6.9 cm 2.1 - 4.0 cm LV Fractional Shortening PLAX 8.0 % 25 - 46 % LV Ejection Fraction 2D Teich 17.1 % IVS Diastolic Thickness 1.2 cm LVPW Diastolic Thickness 0.8 cm LV Relative Wall Thickness 0.3 RV Internal Dim ED PLAX 3.4 cm 1.9 - 3.8 cm LVOT Diameter 1.7 cm Aortic Root Diameter 3.7 cm LA Systolic Diameter LX 4.6 cm 3.0 - 4.0 / 2.7 - 3.8 cm LV Ejection Fraction MOD BP 40.2 % >= 55 % LV Diastolic Length 4C 7.0 cm 6.9 - 10.3 cm LV Diastolic Area 4C 32.9 cm LV Diastolic Volume MOD 4C 127.0 cm LV Ejection Fraction MOD 4C 51.2 % LV Stroke Volume MOD 4C 65.0 cm LV Systolic Length 4C 6.2 cm LV Systolic Area 4C 21.3 cm LV Systolic Volume MOD 4C 62.0 cm LV Ejection Fraction MOD 2C 22.7 % LV Diastolic Volume 4C AL 130.7 cm 85 - 139 / 69 - 109 cm LV Systolic Volume 4C AL 62.6 cm LV Ejection Fraction 4C AL 52.1 % LV Stroke Volume 4C AL 68.1 cm LV Ejection Fraction 2C AL 23.7 % LA Volume 89.0 cm 18 - 58 / 22 - 52 cm Ascending Aorta Diameter 3.7 cm DOPPLER AV Peak Velocity 109.0 cm/s AV Peak Gradient 4.8 mmHg AV Mean Velocity 74.1 cm/s AV Mean Gradient 3.0 mmHg AV Velocity Time Integral 16.9 cm AI Deceleration Faulkner 228.5 cm/s AI Peak Velocity 420.0 cm/s AI Pressure Half Time 541.0 ms AI Peak Gradient 70.6 mmHg LVOT Peak Velocity 72.2 cm/s LVOT Peak Gradient 2.1 mmHg LVOT Mean Velocity 42.9 cm/s LVOT Mean Gradient 1.0 mmHg LVOT Velocity Time Integral 13.7 cm LVOT Stroke Volume 31.1 cm AV Area Cont Eq vti 1.8 cm AV Area Cont Eq pk 1.5 cm MV Peak Velocity 97.9 cm/s MV Peak Gradient 3.8 mmHg MV Mean Velocity 44.8 cm/s MV Mean Gradient 1.0 mmHg Mitral E Point Velocity 89.8 cm/s Mitral A Point Velocity 21.2 cm/s Mitral E to A Ratio 4.2 MV PHT Velocity 105.0 cm/s MV Deceleration [place]ner 916.0 cm/s MV Pressure Half Time 34.4 ms MV Area PHT 6.4 cm MV Deceleration Time 130.0 ms MR Peak Velocity 435.0 cm/s MR Peak Gradient 75.7 mmHg TV Peak E Velocity 99.7 cm/s TR Peak Velocity 276.0 cm/s TR Peak Gradient 30.5 mmHg Right Atrial Pressure 10.0 mmHg Pulmonary Artery Systolic Pressu 40.5 mmHg Right Ventricular Systolic Press 40.5 mmHg PV Peak Velocity 59.3 cm/s PV Peak Gradient 1.4 mmHg PV Mean Velocity 41.3 cm/s PV Mean Gradient 1.0 mmHg PV Velocity Time Integral 11.3 cm
[2017-07-15 08:16] LABS: PT 21.4 SEC (9.4-12.5)
--- NOTE | 2017-07-15 12:01 | PN- Student ---
Subjective Subjective: No acute events overnight. Patient is feeling better. Objective Objective: Vital Signs Date Time Temp Pulse Resp B/P B/P Pulse O2 O2 Flow FiO2 Mean Ox Delivery Rate 07/15 0829 120/74 07/15 0829 12074 07/15 0642 98.8 88 20 122/88 96 Room Air 07/14 2322 98.3 88 20 112/76 97 Room Air 07/14 1434 98.7 92 18 130/92 96 Nasal Cannula ED Intake and Output 07/15 0000 07/14 1200 Intake Total 940 400 Output Total 2000 400 Balance -1060 0 Intake, Oral 940 400 Output, Urine 2000 400 Patient 217 lb Weight Weight Bed scale Measurement Method Laboratory Tests 07/15 06 Chemistry Sodium (137 - 145 mmol/L) 141 Potassium (3.5 - 5.1 mmol/L) 3.8 Chloride (98 - 107 mmol/L) 106 Carbon Dioxide (22 - 30 mmol/L) 27 Anion Gap (5 - 16) 8 BUN (9 - 20 mg/dL) 18 Creatinine (0.7 - 1.2 mg/dL) 0.8 Estimated GFR (>60 ml/min) > 60 BUN/Creatinine Ratio (7 - 25 %) 22.5 Phosphorus (2.5 - 4.5 mg/dL) 3.4 Magnesium (1.6 - 2.3 mg/dL) 1.9 Coagulation PT (9.4 - 12.5 SEC) 21.4 H INR (0.90 - 1.17) 1.95 H Patient is alert, oriented x3, cooperative, and in no acute distress. S1 and S2 were heard. JVD was not present and hepatojugular reflux was negative. Vesicular breath sounds were heard on lung auscultation. Abdomen was soft, nontender, with no guarding. 1+ pitting edema was noted on lower extremities. Results Results: Laboratory Tests 07/15/17 0655: Anion Gap 8, Estimated GFR > 60, BUN/Creatinine Ratio 22.5, Phosphorus 3.4, Magnesium 1.9, PT 21.4 H, INR 1.95 H 07/14/17 0635: Anion Gap 12, Estimated GFR > 60, BUN/Creatinine Ratio 20.0, Calcium 8.9, Phosphorus 4.0, Magnesium 1.8, Troponin I 0.04, PT 30.7 H, INR 2.79 H 07/13/17 2301: Troponin I 0.05 07/13/17 1736: Anion Gap 14, Estimated GFR > 60, BUN/Creatinine Ratio 23.8, Glucose 137 H, Calcium 9.3, Magnesium 1.7, Total Bilirubin 1.0, AST 22, ALT 20 L, Alkaline Phosphatase 83, Troponin I 0.04, Roc-U-Owivkopiudj Pept 6700 H, Total Protein 6.7, Albumin 4.0, Globulin 2.7, Albumin/Globulin Ratio 1.5, TSH &T3 &Free T4 Intrp 4.060, PT 39.6 H, INR 3.59 H, APTT 48 H, D-Dimer High Sensitivty 706 H , CBC w Diff NO MAN DIFF REQ, RBC 4.50 L, MCV 93.3, MCH 31.7 H, MCHC 34.0, RDW 14.4, MPV 7.0 L, Gran % 82.2 H, Lymphocytes % 9.9 L, Monocytes % 6.4, Eosinophils % 1.3, Basophils % 0.2, Absolute Granulocytes 11.6 H, Absolute Lymphocytes 1.4, Absolute Monocytes 0.9 H, Absolute Eosinophils 0.2, Absolute Basophils 0 Imaging: Echocardiogram Severe left ventricular dilatation. Left ventricular ejection fraction is estimated at 35%. Mild concentric left ventricular hypertrophy. Moderately decreased left ventricular systolic function. Global hypokinesis. Defibrillator wire in the right ventricular cavity. Mild mitral regurgitation. Mild aortic regurgitation. Mild tricuspid regurgitation. Trace pulmonic regurgitation. Assessment/Plan Assessment: Mr. Joseph is a 76 y/o male with a PMH of Afib on coumadin (for 8 yrs), HTN, HLD, cardiac arrest on June 23, cardiac stent placement with subsequent pacemaker placing on June 24 at [facility]. He is on Brilinta, Furosemida, Metropolol and Spironolactone for the before-mentioned reason. He came to the ER because of SOB for 2 days duration. He has been receiving 40mg IV furosemide since arrival and he is feeling much better. In fact, he is currently out of suplemmental oxygen. Echo showed 35% EF, which is consistent with the values seen in the records from [facility]. Problem list and plan: 1. Acute heart failure: Imaging showed vascular congestion and BL pleural effusions, so he was continued on lasix. SOB has resolved. Continue the lasix. Monitor I & O with daily weights and BMP. Follow up with cardiology. 2. Recent cardiac arrest with stent placement: Per cardiology's recommendation, continue with brilinta, metropolol & spironolactone. Follow up with cardiology. 3. HTN: Continue the diuretics, metropolol and lisinopril. 4. Chronic afib: Monitor INR. Per cardiology's recommendation, maintain it 2-3. 6. HLD: Continue home meds.
--- NOTE | 2017-07-15 12:18 | PN- Cardiology ---
Subjective Subjective: Feeling better. Shortness of breath is improving. No chest pain. No palpitations. No diaphoresis. Objective Vital Signs and I&Os Vital Signs Date Time Temp Pulse Resp B/P B/P Pulse O2 O2 Flow FiO2 Mean Ox Delivery Rate 07/15 0829 120/74 07/15 08 120/74 07/15 0642 98.8 88 20 122/88 96 Room Air 07/14 2322 98.3 88 20 112/76 97 Room Air 07/14 1434 98.7 92 18 130/92 96 Nasal Cannula Intake & Output 07/15 1600 07/15 0807/15 0000 07/14 1600 07/14 0807/14 0000 Intake Total 220 720 400 Output Total 314 389 6895 900 400 700 Balance -800 -450 -880 -180 0 -700 Intake, Oral 220 720 400 Output, Urine 063 785 1668 900 400 700 Patient 217 lb 235 lb Weight Weight Bed scale Reported by Patient Measurement Method Physical Exam: Gen: The patient is in no acute distress HEENT: Normal nose, ears, and oropharynx. Pupils equal bilaterally. Conjunctiva normal. Neck: Supple with no JVD, no masses, and no thyromegaly Lungs: Clear to auscultation with normal respiratory effort Heart: RRR, S1, S2, no murmurs. No peripheral edema, 2+ pulses in the lower extremities bilaterally Abdomen: Soft, nontender, no masses. No hepatomegaly. No splenomegaly Extremities: No clubbing or cyanosis. Normal muscle strength in the upper and lower extremities Skin: Normal skin turgor with no skin ulcers or lesions noted. Neuro: Cranial nerves intact. Sensation intact Current Medications: Current Medications Sig/Barb Start time Last Medication Dose Route Stop Time Status Admin Acetaminophen 650 MG Q4P PRN 07/14 2130 AC 07/14 PO 212 Atorvastatin Calcium 40 MG QPM 07/14 2100 AC 07/14 PO 2123 Benzonatate 100 MG TID PRN 07/14 1530 AC PO Furosemide 40 MG 7:30 AM, & 4:30 PM 07/14 1630 AC 07/15 IV 0828 Furosemide 40 MG DAILY 07/14 0900 DC 07/14 IV 0823 Lisinopril 5 MG DAILY 07/14 09 AC 07/15 PO 0829 Magnesium Oxide 400 MG DAILY 07/14 09 AC 07/15 PO 08 Metoprolol Succinate 25 MG DAILY 07/14 0900 AC 07/15 PO 0829 Patient Medication 1 ED ONE ONE 07/14 1545 DC Teaching ED 07/14 1546 Polycarbophil 625 MG BID 07/13 230 07/15 PO 0829 Potassium Chloride 40 MEQ ONCE ONE 07/14 1530 DC 07/14 PO 07/14 1531 1651 Spironolactone 6.25 MG DAILY 07/14 0900 07/15 PO 0828 Ticagrelor 90 MG BID 07/13 2226 07/15 PO 0829 Results Last 48 Hrs of Labs/Mics: Laboratory Tests 07/15/17 0655: Anion Gap 8, Estimated GFR > 60, BUN/Creatinine Ratio 22.5, Phosphorus 3.4, Magnesium 1.9, PT 21.4 H, INR 1.95 H 07/14/17 0635: Anion Gap 12, Estimated GFR > 60, BUN/Creatinine Ratio 20.0, Calcium 8.9, Phosphorus 4.0, Magnesium 1.8, Troponin I 0.04, PT 30.7 H, INR 2.79 H 07/13/172300: Troponin I 0.05 07/13/17 1736: Anion Gap 14, Estimated GFR > 60, BUN/Creatinine Ratio 23.8, Glucose 137 H, Calcium 9.3, Magnesium 1.7, Total Bilirubin 1.0, AST 22, ALT 20 L, Alkaline Phosphatase 83, Troponin I 0.04, Fic-R-Vgtysvemxnm Pept 6700 H, Total Protein 6.7, Albumin 4.0, Globulin 2.7, Albumin/Globulin Ratio 1.5, TSH &T3 &Free T4 Intrp 4.060, PT 39.6 H, INR 3.59 H, APTT 48 H, D-Dimer High Sensitivty 706 H , CBC w Diff NO MAN DIFF REQ, RBC 4.50 L, MCV 93.3, MCH 31.7 H, MCHC 34.0, RDW 14.4, MPV 7.0 L, Gran % 82.2 H, Lymphocytes % 9.9 L, Monocytes % 6.4, Eosinophils % 1.3, Basophils % 0.2, Absolute Granulocytes 11.6 H, Absolute Lymphocytes 1.4, Absolute Monocytes 0.9 H, Absolute Eosinophils 0.2, Absolute Basophils 0 Recent Imaging Studies: Echocardiogram: severe left ventricular dilatation. Left ventricular ejection fraction is estimated at 35%. Mild concentric left ventricular hypertrophy. Moderately decreased left ventricular systolic function. Global hypokinesis. Defibrillator wire in the right ventricular cavity. Mild mitral regurgitation. Mild aortic regurgitation. Mild tricuspid regurgitation. Trace pulmonic regurgitation. Assessment/Plan Assessment/Plan Assessment: 1. CAD, status post recent cardiac arrest with stent placement 2. Recent defibrillator placement 3. Acute on chronic systolic heart failure, LVEF 35% Plan: * Change Lasix to 40 mg p.o. twice daily * Continue metoprolol and lisinopril * Continue Brilinta * Dose warfarin for INR 2-3 * Likely ready for discharge tomorrow. * The patient should resume his prior warfarin dose on discharge, and he should have an INR check in 3 days. Continue telemetry? Yes
[2017-07-15 14:40] VITALS: BP 130/88
--- NOTE | 2017-07-15 16:07 | RADIOLOGY REPORT ---
EXAMINATION: XR HAND, LEFT CLINICAL INFORMATION: Pain and swelling of left thumb. Presumptive diagnosis of fracture. COMPARISON: None TECHNIQUE: Four views of the left hand. FINDINGS: No acute fracture, dislocation, radiopaque foreign body. Mild degenerative changes at the first carpometacarpal joint, metacarpophalangeal joint and interphalangeal joint with mild joint space narrowing, spurring, cystic changes. Mild degenerative changes at the DIP joints of the second through fifth digits. IMPRESSION: 1. No acute fracture or dislocation. 2. Mild degenerative changes in the left hand as discussed above.
[2017-07-15 22:00] VITALS: BP 120/72
[2017-07-16 06:53] VITALS: BP 118/76
[2017-07-16 07:56] VITALS: BP 118/74
[2017-07-16 08:33] LABS: PT 18.1 SEC (9.4-12.5)
--- NOTE | 2017-07-16 09:02 | PN- Housestaff ---
Tiago MARQUEZ,[facility] 07/16/17 0902: Subjective Follow-up For: 1. CAD, status post recent cardiac arrest with stent placement 2. Recent defibrillator placement 3. Acute on chronic systolic heart failure, LVEF 35% Tele-Events Since Last Visit: Sinus pacing Heart rate 84- 100 5 beat run of V. tach around 2 AM Subjective: Patient in resting comfortably, denies any active complaints. Pain in his left thumb is better. Wants to be hooked up with the CHF clinic and cardiac rehabilitation on discharge. Review of Systems Constitutional: Reports: no symptoms. EENTM: Reports: no symptoms. Cardiovascular: Reports: no symptoms. Respiratory: Reports: no symptoms. Gastrointestinal: Reports: no symptoms. Genitourinary: Reports: no symptoms. Musculoskeletal: Reports: joint pain. Skin: Reports: no symptoms. Neurological/Psychological: Reports: no symptoms. Hematologic/Endocrine: Reports: no symptoms. Immunologic/Allergic: Reports: no symptoms. Objective Last 24 Hrs of Vital Signs/I&O Vital Signs Date Time Temp Pulse Resp B/P B/P Pulse O2 O2 Flow FiO2 Mean Ox Delivery Rate 07/16 0756 118/74 07/16 0748 118/64 07/16 0653 97.7 79 22 118/76 96 Room Air 07/15 2200 99.4 74 22 120/72 96 07/15 1440 98.1 90 18 130/88 97 Intake & Output 07/16 1600 07/16 0800 07/16 0000 Intake Total 400 240 Output Total 044 769 6760 Balance -500 -575 -860 Intake, Oral 400 240 Output, Urine 080 123 3449 Patient 219 lb Weight Physical Exam General Appearance: Alert, Oriented X3, Cooperative, No Acute Distress Skin: No Rashes, No Breakdown Cardiovascular: Normal S1, Normal S2 Lungs: Clear to Auscultation, Normal Air Movement Abdomen: Normal Bowel Sounds, Soft, No Tenderness Extremities: No Clubbing, No Cyanosis, No Edema, Chronic Venous stasis changes Current Medications: Current Medications Sig/Barb Start time Last Medication Dose Route Stop Time Status Admin Acetaminophen 650 MG .STK-MED ONE 07/15 2005 DC PO 07/15 2005 Acetaminophen 650 MG Q4P PRN 07/14 2130 DCD 07/15 PO 2009 Atorvastatin Calcium 40 MG QPM 07/14 2100 DCD 07/15 PO 2009 Benzonatate 100 MG TID PRN 07/14 1530 DCD PO Furosemide 40 MG 7:30 AM, & 4:30 PM 07/15 1630 DCD 07/16 PO 0803 Lisinopril 5 MG DAILY 07/14 09 DCD 07/16 PO 0748 Magnesium Oxide 400 MG DAILY 07/14 09 DCD 07/16 PO 0747 Metoprolol Succinate 25 MG DAILY 07/14 09 DCD 07/16 PO 0756 Phosphate 250 MG PC AND AT BEDTIME 07/15 1300 DC 07/16 PO 07/16 0901 0748 Polycarbophil 625 MG BID 07/13 2300 DCD 07/16 PO 0753 Potassium Chloride 20 MEQ DAILY 07/16 1215 DCD 07/16 PO 1225 Spironolactone 6.25 MG DAILY 07/14 899 DCD 07/16 PO 0756 Ticagrelor 90 MG BID 07/13 2226 DCD 07/16 PO 0752 Warfarin Sodium 5 MG COUMADIN 1700 ONE 07/15 1700 DC 07/15 PO 07/15 1701 1618 Last 24 Hrs of Lab/Vargas Results Last 24 Hrs of Labs/Mics: Laboratory Tests 07/16/17 0615: Anion Gap 12, Estimated GFR > 60, BUN/Creatinine Ratio 20.0, Phosphorus 3.5, Magnesium 1.8, PT 18.1 H, INR 1.65 H Assessment/Plan Assessment: Mr. Joseph is a 76-year-old male with past medical history of atrial fibrillation on warfarin, hypertension, recent cardiac arrest in June 2017 with subsequent myocardial infarction status post stent and pacemaker placement at [facility] followed by Dr. Shepard, and [facility] by Dr. Hung who presents with shortness of breath. He will be admitted to telemetry and treated for the following problems: 1. Acute on chronic systolic heart failure, LVEF 35% 2. Supratherapeutic INR #Acute on chronic systolic heart failure, LVEF 35%: Patient presents with signs and symptoms of heart failure status post recent myocardial infarction. Chest CTA negative. He received 40 mg IV furosemide in the emergency room and felt better afterwards. -Cardiology consult; appreciate recommendations. -EKG and troponins 3 negative -Continue telemetry monitoring -Daily weights, strict I's and O's; negative FB of 5000 mL since admission -Continue Lasix 40 mg by mouth twice a day. -Echocardiogram showed ejection fraction of 35% with global hypokinesis. Records from [facility] shows similar echo findings. - Increase lisinopril to 10 mg daily. - Also start him on k-dur 20 mEQ daily. #Supratherapeutic INR: Subtherapeutic today. Patient is on warfarin for atrial fibrillation. INR at the time of admission was 3.59. - Daily INR, 1.65 today. - Will give warfarin 5 mg once. - Repeat INR in am. # PAin and Swelling of Left thumb; - Xray negative for any fractures. - Pain management. #Chronic medical problems: -Continue other medications DVT prophylaxis with warfarin CHF diet Full code Problem List: 1. CHF (congestive heart failure) Pain Ratin Pain Location: Left Thumb Pain Goal: Remain pain free Pain Plan: Pain Pathway Tomorrow's Labs & Rationales: None Godfrey Sahni MD 07/16/175: Attending MD Review Statement Attending Statement Attending MD Statement: examined this patient, discuss w/resident/PA/LEATHER SHAVER, agreed w/resident/PA/LEATHER SHAVER, reviewed EMR data (avail) Attending Assessment/Plan: 76M HTN, Afib on coumadin, benign parotid adenoma, psoriasis, recent cardiac arrest (June 2017) s/p RCA stent and PPM admitted for shortness of breath with exertion and at rest, found to have acute CHF, and improved with Lasix. Patient feels much better today. He is now on room air and saturating at 98%. He has left hand pain and swelling. 1. Acute on chronic CHF, unclear whether systolic or diastolic 2. Hypoxia Plan - Stable for discharge - Continue Lasix - Hand x-ray negative - Outpatient cardiology - Continue home medications - If hand pain continues will see orthopedics
--- NOTE | 2017-07-16 10:26 | PN- Cardiology ---
Subjective Subjective: * No chest discomfort or shortness of breath. Objective Vital Signs and I&Os Vital Signs Date Time Temp Pulse Resp B/P B/P Pulse O2 O2 Flow FiO2 Mean Ox Delivery Rate 07/16 0756 118/74 07/16 0748 118/64 07/16 0653 97.7 79 22 118/76 96 Room Air 07/15 2200 99.4 74 22 120/72 96 07/15 1440 98.1 90 18 130/88 97 Intake & Output 07/16 1600 07/16 0800 07/16 0000 07/15 1600 07/15 0800 07/15 0000 Intake Total 240 400 220 Output Total 575 1100 0841 560 3624 Balance -575 -860 -1300 -450 -880 Intake, Oral 240 400 220 Output, Urine 575 1100 5678 947 3027 Patient 219 lb 217 lb Weight Weight Bed scale Measurement Method Physical Exam: General: WD/WN male in NAD; alert and oriented x 3 HEENT: NC/AT, PERRL, EOMI Neck: no JVD, no carotid bruit Heart: RRR with 2/6 systolic murmur Lungs: clear bilaterally Extremities: no edema Assessment/Plan Assessment/Plan * Atrial fibrillation. Change to Eliquis 5mg BID. Good rate control on current dose of Metoprolol. * Decompensated CHF in the setting of a low EF. This is the result of a recent DE and cardiac arrest. He is protected with a defibrillator. Continue afterload reduction with Lisinopril at 10mg daily. Continue Lasix at 40mg PO BID. Begin KDur 20 meq daily. Continue his statin. Continue Brilinta 90mg BID. Continue Spironolactone. * Stable for discharge from a cardiac standpoint with follow up in one week by Dr. Shepard. Continue telemetry? No
[2017-07-16] MEDS ORDERED: LISINOPRIL10 M1 PO ×2 (11:11→12:26)
[2017-07-16] MEDS ORDERED: LASIX40 M1 PO ×2 (11:11→12:26)
--- NOTE | 2017-07-16 11:14 | Patient Discharge Instructions ---
Discharge Instructions General Discharge Information You were seen/treated for: Decompensated CHF Supratherapeutic INR Special Instructions: Please follow up with Dr. Shepard within a week after discharge. Please follow up with your PCP within 1-2 weeks after discharge. We have increased the dose of lisinopril to 10mg daily. Also start taking lasix 40mg twice a aday. Diet Continue normal diet: Yes Recommended Diet: Heart Healthy Activity Full Activity/No Limits: Yes Acute Coronary Syndrome Inclusion Criteria At DC or during hospital stay patient has or had the following: ACS DIAGNOSIS No Discharge Core Measures Meds if any: Prescribed or Continued at Discharge Meds if any: NOT Prescribed or Continued at Discharge Congestive Heart Failure Inclusion Criteria At DC or during hospital stay patient has or had the following: CHF DIAGNOSIS Yes Discharge Core Measures Meds if any: Prescribed or Continued at Discharge MAIDA/ARB for EF <40% Yes Meds if any: NOT Prescribed or Continued at Discharge Cerebrovascular accident Inclusion Criteria At DC or during hospital stay patient has or had the following: CVA/TIA Diagnosis No Discharge Core Measures Meds if any: Prescribed or Continued at Discharge Meds if any: NOT Prescribed or Continued at Discharge Venous thromboembolism Inclusion Criteria VTE Diagnosis No VTE Type NONE VTE Confirmed by (Test) CT CHEST ANGIOGRAM Discharge Core Measures - Per Current guidelines, there needs to be overlap - treatment for the first 5 days of Warfarin therapy. - If discharged on Warfarin prior to 5 days of - overlap therapy, the patient will need to be - assessed for post discharge needs including - *Post discharge parental anticoagulation - *Warfarin and/or parental anticoagulation education - *Follow up date to check INR post discharge At least 5 days overlap therapy as Inpatient No Meds if any: Prescribed or Continued at Discharge Note: Overlap Therapy is Warfarin and Anticoagulant Meds if any: NOT Prescribed or Continued at Discharge
[2017-07-16] MEDS ORDERED: KLOR-CON M2020 ME1 PO (12:25)
--- NOTE | 2017-07-19 11:09 | Discharge Summary ---
Visit Information Visit Dates Admission Date: 07/13/17 Discharge Date: 07/16/17 Hospital Course Course Attending Physician: Godfrey Sahni MD Primary Care Physician: Ken Membreno MD Hospital Course: Mr. Joseph is a 76-year-old male with past medical history of atrial fibrillation on warfarin, hypertension, recent cardiac arrest in June 2017 with subsequent myocardial infarction status post stent and pacemaker placement at [facility] followed by Dr. Shepard, and psoriasis followed by Dr. Hung who presents with shortness of breath. He will be admitted to the telemetry floor and treated for the following problems: 1. Acute on chronic systolic heart failure, LVEF 35% 2. Supratherapeutic INR 3. Recent CAD s/p cardiac arrest with stent and defibrillator placement. #Acute on chronic systolic heart failure, LVEF 35%: Patient presented with signs and symptoms of heart failure status post recent myocardial infarction. Cardiology consult was obtained. Patient was started on IV Lasix 40 mg twice daily with strict monitoring of ins and outs and daily weights. Troponin and EKG 3 were negative. Echocardiogram showed ejection fraction of 35% with global hypokinesis. Records from [facility] showed similar echo findings. Chest CTA was also done given elevated d-dimer of 706 and sinus tachycardia which did not show any evidence of pulmonary embolism. Patient was discharged home on Lasix 40 mg by mouth twice a day with outpatient follow-up with Dr. Shepard in a week. Lisinopril was increased to 10 mg daily for better blood pressure control. Patient was on warfarin for atrial fibrillation and presented with an INR of 3.59. Warfarin was initially held induced according to do the daily INR. He also complained of pain and Swelling of the left thumb, Xray was obtained but was negative for any fractures. Rest of the home medications were continued. Allergies: Coded Allergies: No Known Allergies (07/13/17) Significant Procedures: XRY-PORTABLE CHEST XRAY FINDINGS: The cardiac silhouette is enlarged. There is moderate vascular congestion. There is retrocardiac opacification. The mediastinal and hilar contours are unremarkable. There are no demonstrable pleural effusions or pneumothoraces. The osseous structures are unremarkable. IMPRESSION: Cardiomegaly with moderate vascular congestion and retrocardiac airspace disease. CTA CHEST-PULMONARY EMBOLISM FINDINGS: The heart is stable in size. There is no pericardial effusion. The great vessels are unremarkable. Specifically, there is no pulmonary arterial filling defect. There is no CT evidence for pulmonary embolism. There are no chest wall masses. Review of lung windows demonstrates that there are no pneumothoraces. There are small bilateral pleural effusions. There is mild multifocal atelectasis. There are no pulmonary parenchymal nodules. Limited evaluation of the upper abdomen demonstrates that the liver is of normal size and attenuation without focal lesions. Normal adrenal glands are identified. IMPRESSION: No CT evidence for pulmonary embolism. Small bilateral pleural effusions. Mild multifocal atelectasis. ECHOCARDIOGRAM FINDINGS Left Ventricle Severe left ventricular dilatation. Mild concentric left ventricular hypertrophy. Moderately decreased left ventricular systolic function. Left ventricular ejection fraction is estimated at 35%. Global hypokinesis Right Ventricle Defibrillator wire in the right ventricular cavity. Normal right ventricular size and function. Right Atrium Normal right atrial size. Left Atrium Mild left atrial dilatation. Mitral Valve Mitral valve thickened. Mild mitral regurgitation. Aortic Valve Diffuse thickening (sclerosis) of the aortic valve cusps without reduced excursion. Mild aortic regurgitation. No aortic stenosis. Tricuspid Valve Tricuspid valve not well visualized, grossly normal. Mild tricuspid regurgitation. No evidence of pulmonary hypertension. Pulmonic Valve Pulmonic valve not well visualized, grossly normal. Trace pulmonic regurgitation. Pericardium No pericardial effusion. Great Vessels Normal size aortic root. CONCLUSIONS Severe left ventricular dilatation. Left ventricular ejection fraction is estimated at 35%. Mild concentric left ventricular hypertrophy. Moderately decreased left ventricular systolic function. Global hypokinesis. Defibrillator wire in the right ventricular cavity. Mild mitral regurgitation. Mild aortic regurgitation. Mild tricuspid regurgitation. Trace pulmonic regurgitation. XRY-HAND, LEFT FINDINGS: No acute fracture, dislocation, radiopaque foreign body. Mild degenerative changes at the first carpometacarpal joint, metacarpophalangeal joint and interphalangeal joint with mild joint space narrowing, spurring, cystic changes. Mild degenerative changes at the DIP joints of the second through fifth digits. IMPRESSION: 1. No acute fracture or dislocation. 2. Mild degenerative changes in the left hand as discussed above. Disposition Summary Disposition Principal Diagnosis: Acute on chronic systolic heart failure, LVEF 35% Additional Diagnosis: # CAD, status post recent cardiac arrest with stent placement # Recent defibrillator placement # Supratherapeutic INR Discharge Disposition: home or self care Discharge Instructions General Discharge Information Code Status: Full Code Patient's Diet: Heart healthy diet Patient's Activity: As tolerated Follow-Up Instructions/Appts: Please follow up with Dr. Shepard within a week after discharge. Please follow up with your PCP within 1-2 weeks after discharge. We have increased the dose of lisinopril to 10mg daily. Also start taking lasix 40mg twice a aday. Medications at Discharge Discharge Medications: Stop taking the following medications: Lisinopril (Lisinopril) 5 MG TABLET ORAL DAILY Qty = 30 Furosemide (Furosemide) 20 MG TABLET ORAL TUE//TUE Qty = 30 Continue taking these medications: Warfarin Sodium (Coumadin) 5 MG TABLET 1 Tablet ORAL Every night Qty = 30 Comments: Last Taken:07/15/17 Time:5PM Atorvastatin Calcium (Atorvastatin Calcium) 40 MG TABLET 1 Tablet ORAL Every night Qty = 30 Comments: Last Taken:07/15/17 Time:5PM Metoprolol Succ XL (Toprol XL) 25 MG TAB.ER.24H 1 Tablet ORAL DAILY Qty = 30 Comments: Last Taken:07/16/17 Time:1000 Spironolactone (Spironolactone) 25 MG TABLET 0.25 Tablet ORAL DAILY Qty = 30 Comments: Last Taken:07/16/17 Time:1000 Ticagrelor (Brilinta) 90 MG TABLET 1 Tablet ORAL TWICE DAILY Qty = 60 Comments: Last Taken:07/16/17 Time:1000 Magnesium Oxide (Magnesium) 400 MG CAPSULE 1 Capsule ORAL DAILY Qty = 30 Comments: Last Taken:07/16/17 Time:1000 Calcium Polycarbophil (Fiber Tabs) 625 MG TABLET 1 Tablet ORAL TWICE DAILY Qty = 60 Comments: Last Taken:07/16/16 Time:1000 Start taking the following new medications: Furosemide (Lasix) 40 MG TABLET 1 Tablet ORAL 7:30AM & 4:30PM Qty = 60 No Refills Instructions: . Comments: Last Taken:07/16/17 Time:1000 Lisinopril (Lisinopril) 10 MG TABLET 1 Tablet ORAL DAILY Qty = 30 No Refills Instructions: . Comments: Last Taken:07/16/17 Time:1000 Potassium Chloride (Klor-Con M20) 20 MEQ TAB.ER.PRT 1 Tablet ORAL DAILY Qty = 30 No Refills Comments: Last Taken:07/16/17 Time:1200 NOON Copies To: Temi MARQUEZKen; Drea MARQUEZ,Denise Curtis Comments: Last Taken:07/16/17 Time:1000 Potassium Chloride (Klor-Con M20) 20 MEQ TAB.ER.PRT 1 Tablet ORAL DAILY Qty = 30 No Refills Comments: Last Taken:07/16/17 Time:1200 NOON Copies To: Ken Membreno MD; Drea MARQUEZ,Denise Curtis
== END 2017-07-16 14:13 | DRG 281 ==
LOC: ERH 17:13 → ERHI 20:32 → 1NO 20:32 → ENRESERV 21:05 → ENTRNSPT 21:40 → EDTRNSPTSTS 21:46 → CMPTRNSPT 21:59 → 1NO 22:07 → ENPENDDIS 07-16 12:26 → ENTRNSPT 07-16 14:00 → EDTRNSPTSTS 07-16 14:02 → 1NO 07-16 14:13 → CMPTRNSPT 07-16 14:25
PROVIDERS: Internal Medicine; Physician Assistant Medical; Preventive Medicine Public Health & General Preventive Medicine
DX: I11.0 Hypertensive heart disease with heart failure (principal); I21.9 Acute myocardial infarction, unspecified; D68.9 Coagulation defect, unspecified; I48.2 Chronic atrial fibrillation; I48.91 Unspecified atrial fibrillation; Z79.01 Long term (current) use of anticoagulants; I50.23 Acute on chronic systolic (congestive) heart failure; Z95.5 Presence of coronary angioplasty implant and graft; L40.9 Psoriasis, unspecified; E78.5 Hyperlipidemia, unspecified; Z95.810 Presence of automatic (implantable) cardiac defibrillator; R09.02 Hypoxemia
CPT/HCPCS: 1NSP; 36592; 71045; 73130-LT; 82436; 93005; 93010; 93306; 96374; J1940; J3490

== ENCOUNTER 2017-09-18 19:36 | Emergency (ER) | payer OTHER, MEDICARE ==
[~2017-09-18 19:36] MED LIST: ATORVASTATIN CA40 M1 PO; BRILINTA90 M1 PO; COUMADIN5 M2 PO; FIBER TABS625 MG PO; FUROSEMIDE20 M1 PO; KEFLEX500 M1 PO; KLOR-CON M2020 ME1 PO; LASIX40 M1 PO; LISINOPRIL10 M1 PO; LISINOPRIL5 M1 PO; MAGNESIUM400 M1 PO; SPIRONOLACTONE25 M1 PO; TOPROL XL25 M2 PO
[2017-09-18 21:12] LABS: ABSOLUTE BASOPHIL COUNT 0 /CUMM (0.0-0.2); ABSOLUTE EOSINOPHIL COUNT 0.2 /CUMM (0.0-0.7); ABSOLUTE GRANULOCYTE CT 4.4 /CUMM (1.4-6.5); ABSOLUTE MONOCYTE COUNT 0.6 /CUMM (0.10-0.60); BASOPHIL % 0.2 % (0.0-2.0); EOSINOPHIL % 3.3 % (0-5); GRANULOCYTE % 59.8 % (42.2-75.2); MEAN CORPUSCULAR HGB 31.3 PG (27.0-31.0); MEAN CORPUSCULAR VOLUME 92.2 FL (80.0-94.0); MEAN PLATELET VOLUME 6.8 FL (7.4-10.4); PLATELET COUNT 206 /CUMM (130-400); RBC DISTRIBUTION WIDTH 15.5 % (11.5-14.5); RED BLOOD CELL CT 4.23 /CUMM (4.70-6.10); WHITE BLOOD CELL COUNT 7.3 /CUMM (4.8-10.8)
[2017-09-18 21:28] LABS: PTT 63 SEC (25-37)
[2017-09-18 21:44] LABS: PT 49.2 SEC (9.4-12.5)
--- NOTE | 2017-09-18 22:24 | ED NOSE COMPLAINT ---
History of Present Illness General Chief Complaint: Epistaxis/Nasal Foreign Body Stated Complaint: "NOSE BLEED,ON BLOOD THINNERS" Source: patient Exam Limitations: no limitations Vital Signs & Intake/Output Vital Signs & Intake/Output Vital Signs Date Time Temp Pulse Resp B/P B/P Pulse O2 O2 Flow FiO2 Mean Ox Delivery Rate 09/18 2330 97.4 84 16 111/79 98 Room Air 09/18 2212 Room Air 09/18 1950 97.5 83 18 108/76 97 Room Air ED Intake and Output 09/19 0000 09/18 1200 Intake Total 0 Output Total Balance 0 Intake, Oral 0 Allergies Coded Allergies: No Known Allergies (07/13/17) Reconcile Medications Amoxicillin/Potassium Clav (Augmentin 875-125 Tablet) 875 MG-125 MG TABLET 1 TAB PO BID INFECTION PREVENTION Atorvastatin Calcium 40 MG TABLET 1 TAB PO QPM Cholesterol (Reported) Calcium Polycarbophil (Fiber Tabs) 625 MG TABLET 1 TAB PO BID Fiber (Reported ) Cephalexin (Keflex) 500 MG CAPSULE 1 CAP PO TID WOUND Furosemide (Lasix) 40 MG TABLET 1 TAB PO 7:30 AM, & 4:30 PM CHF . Lisinopril 10 MG TABLET 1 TAB PO DAILY CHF . Magnesium Oxide (Magnesium) 400 MG CAPSULE 1 CAP PO DAILY Mg (Reported) Metoprolol Succ XL (Toprol XL) 25 MG TAB.ER.24H 1 TAB PO DAILY BP (Reported) Potassium Chloride (Klor-Con M20) 20 MEQ TAB.ER.PRT 1 TAB PO DAILY SUPPLEMENT Spironolactone 25 MG TABLET 0.25 TAB PO DAILY Diuretic (Reported) Ticagrelor (Brilinta) 90 MG TABLET 1 TAB PO BID Stents (Reported) Warfarin Sodium (Coumadin) 5 MG TABLET 1 TAB PO QPM Atrial Fibrillation ( Reported) Triage Note: PT TO TRIAGE WITH L NARE NOSE BLEED THAT BEGAN WHILE SITTING AT THE DINNER TABLE AT REST. PT HX NE AND AFIB, PT ON WARFARIN 5MG DAILY. LAST DOSE LAST NIGHT. BLEEDING CONTROLLED IN TRIAGE PT PT HOME GAUZE. Triage Nurses Notes Reviewed? yes Onset: Abrupt Duration: hour(s): Timing: recent history Severity: moderate Modifying Factors: Improves With: rest. Associated Symptoms: "I was fine... the bleeding just started... I'm on brilinta and coumadin. HPI: 76 yo gentleman, on brilinta and coumadin, bleeding from left nare that began several hours ago, without clots. "The blood mostly came out the front of the nose on the left.... Not so much down my throat." He notes a prior episode of bleeding which required cautery. Past History Travel History Traveled to [place] past 21 day No Medical History Any Pertinent Medical History? 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 No Review of Systems Review of Systems Constitutional: Reports: no symptoms. EENTM: Reports: no symptoms. Respiratory: Reports: no symptoms. Cardiovascular: Reports: no symptoms. GI: Reports: no symptoms. Genitourinary: Reports: no symptoms. Musculoskeletal: Reports: no symptoms. Skin: Reports: no symptoms. Neurological/Psychological: Reports: no symptoms. Hematologic/Endocrine: Reports: no symptoms. Immunologic/Allergic: Reports: no symptoms. All Other Systems: Reviewed and Negative Physical Exam Physical Exam General Appearance: well developed/nourished, mild distress Head: atraumatic Eyes: Bilateral: normal appearance. Nose: left nare with anterior septal mild oozing blood, no clots. Mouth/Throat: normal mouth inspection, pharynx normal Neck: normal inspection, supple, full range of motion Cardiovascular/Respiratory: normal breath sounds, normal peripheral pulses, regular rate/rhythm Back: normal inspection, normal range of motion Neurologic/Psych: no motor/sensory deficits, awake, alert, oriented x 3 Skin: intact, normal color, warm/dry Progress Differential Diagnoses I considered the following diagnoses in my evaluation of the patient: anterior vs posterior bleed. Plan of Care: Orders Procedure Date/time Status PARTIAL THROMBOPLASTIN TIME 09/18 2014 Complete PROTHROMBIN TIME 09/18 2014 Complete CBC WITHOUT DIFFERENTIAL 09/18 2014 Complete BASIC METABOLIC PANEL 09/18 2014 Complete Laboratory Tests 09/18/17 2100: Anion Gap 11, Estimated GFR > 60, BUN/Creatinine Ratio 30.0 H, Glucose 133 H, Calcium 9.8, PT 49.2 *H, INR 4.45 *H, APTT 63 H, CBC w Diff NO MAN DIFF REQ, RBC 4.23 L, MCV 92.2, MCH 31.3 H, MCHC 34.0, RDW 15.5 H, MPV 6.8 L, Gran % 59.8, Lymphocytes % 27.8, Monocytes % 8.9, Eosinophils % 3.3, Basophils % 0.2, Absolute Granulocytes 4.4, Absolute Lymphocytes 2.0, Absolute Monocytes 0.6, Absolute Eosinophils 0.2, Absolute Basophils 0 Initial ED EKG: none Departure Departure Disposition: HOME OR SELF CARE Condition: Stable Clinical Impression Primary Impression: Bleeding nose Referrals: Temi MARQUEZ,Ken Hurt (PCP/Family) Departure Forms: Customer Survey General Discharge Information Prescriptions: Current Visit Scripts Amoxicillin/Potassium Clav (Augmentin 875-125 Tablet) 1 TAB PO BID #14 TAB Comments 09/18/17, 23:25pm... pt monitored in ED for more than 1 hour... pt had no nasal bleeding with naal rocket... he feels comfortable going home and was referred to ENT
[2017-09-18] MEDS ORDERED: AUGMENTIN 875-1 EACH PO (23:00)
[2017-09-18 23:30] VITALS: BP 111/79
== END 2017-09-18 23:31 ==
LOC: ERH 19:36
PROVIDERS: Pediatrics
DX: R04.0 Epistaxis (principal)